=== PATIENT | female | born 1995 | race American Indian/Alaskan Native ===

== ENCOUNTER 2020-07-06 21:57 | Emergency (ER) | payer SELFPAY ==
[2020-07-06 23:43] VITALS: BP 122/43
[2020-07-07] MEDS ORDERED: oxyCODONE /ACETAMINOPHEN 5-325MG TAB PO ONE (00:28)
[2020-07-07] MEDS ORDERED: ONDANSETRON 4 MG ODT TAB PO ONE (00:28)
[2020-07-07] MEDS ORDERED: IBUPROFEN 600 MG TAB PO ONE (00:28)
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
== END 2020-07-07 05:00 | disposition home or self-care (01) ==
LOC: ED 21:57
DX: S00.83XA Contusion of other part of head, initial encounter (principal); M62.838 Other muscle spasm; J45.909 Unspecified asthma, uncomplicated; D64.9 Anemia, unspecified; Z98.890 Other specified postprocedural states; Z79.899 Other long term (current) drug therapy; V49.59XA Passenger injured in collision with other motor vehicles in traffic accident, initial encounter; Y93.89 Activity, other specified; Y92.410 Unspecified street and highway as the place of occurrence of the external cause; Y99.8 Other external cause status
CPT/HCPCS: 70450; 70486; 72125; 99283; Q0162